=== PATIENT | male | born 1985 | race Caucasian/White ===

== ENCOUNTER 2016-08-23 10:27 | Emergency (ER) | payer OTHER ==
[~2016-08-23] VITALS: Ht 182.9 cm; Wt 76.7 kg
[2016-08-23 10:30] VITALS: BP 149/75
[2016-08-23] MEDS ORDERED: L.E.T SOLUTION TP ONE ×2 (11:04→11:30)
[2016-08-23] MEDS ORDERED: DIPH,PERTUSS(ACELL),TET VAC/PF 0.5 ML IM-VACC ONE ×2 (11:05→11:30)
[2016-08-23] MEDS ORDERED: LIDOCAINE 1%, 10ML INFIL ONE (11:30)
[2016-08-23] MEDS ORDERED: LIDOCAINE 1%, 20ML ONE (11:41)
[2016-08-23] MEDS ORDERED: BACITRACIN ZINC OINT 500U/GM, 0.9 GM ONE (12:29)
== END 2016-08-23 12:52 | disposition home or self-care (01) ==
LOC: ED 12:44
DX: S61.412A Laceration without foreign body of left hand, initial encounter (principal); V18.4XXA Pedal cycle driver injured in noncollision transport accident in traffic accident, initial encounter; Y93.55 Activity, bike riding; Y92.488 Other paved roadways as the place of occurrence of the external cause; Y99.8 Other external cause status
CPT/HCPCS: 12041; 90471; 90715